=== PATIENT | male | born 2000 | race Caucasian/White ===

== ENCOUNTER 2021-12-06 18:38 | Emergency (ER) | payer OTHER, SELFPAY ==
[2021-12-06 19:04] VITALS: BP 115/71; PULSE 62; RESP 16; O2SAT 99; BMI 25.1
[2021-12-06 19:53] LABS: MANUAL DIFF FLAG NO
[2021-12-06 19:54] LABS: Basophils Percent Auto 0.3 % (0-2); Eosinophils Absolute Auto 0.1 X10*3/uL (0.0-0.4); Eosinophils Percent Auto 0.7 % (0-4); Hematocrit 48.2 % (42.0-52.0); Hemoglobin 15.9 g/dl (14.0-18.0); Imm Gran Abs Auto 0.11 X10*3/uL (0.00-0.03); Imm Gran Pct Auto 0.7 % (0.0-0.4); Lymphocytes Percent Auto 19.7 % (20-40); Mean Corpuscular Hemoglobin 29.3 pg (27.0-33.0); Mean Corpuscular Volume 88.9 fL (80.0-98.0); Monocytes Absolute Auto 1.1 X10*3/uL (0.1-1.2); Monocytes Percent Auto 7.1 % (2-11); Neutrophils Percent Auto 71.5 % (45-73); Platelet Count 309 X10*3/uL (160-400); Red Blood Count 5.42 X10*6/uL (4.60-5.80); Red Cell Distribution Width 12.4 % (11.0-16.0); White Blood Count 15.3 X10*3/uL (4.8-10.8)
[2021-12-06 20:10] LABS: Anion Gap 13 (12-20); Blood Urea Nitrogen 17 mg/dL (9-16); Calcium 10.4 mg/dL (8.4-10.2); Carbon Dioxide 25 mmol/L (22-29); Chloride 106 mmol/L (96-108); Creatinine Clr Calc Pharmacy 147.4; Estimated Glomerular Filt Rate > 60; Glucose Random 102 mg/dL (60-115); Potassium 4.4 mmol/L (3.3-5.1); Sodium 140 mmol/L (135-145)
== END 2021-12-06 21:05 | disposition left against medical advice (07) ==
PROVIDERS: Emergency Provider Emergency Medicine
DX: R51.9 Headache, unspecified (principal); R11.2 Nausea with vomiting, unspecified
CPT/HCPCS: 36415; 80048; 85025; 99282; 99283

== ENCOUNTER 2022-01-02 09:32 | Emergency (ER) | payer OTHER, SELFPAY ==
[2022-01-02 09:37] VITALS: BP 136/74; PULSE 68; RESP 16; TEMP 37.1; O2SAT 99; BMI 22.3
== END 2022-01-02 16:57 | disposition left against medical advice (07) ==
PROVIDERS: Emergency Provider Emergency Medicine
DX: G43.909 Migraine, unspecified, not intractable, without status migrainosus (principal); R11.10 Vomiting, unspecified
CPT/HCPCS: 99281

== ENCOUNTER 2023-12-08 18:58 | Emergency (ER) | payer SELFPAY ==
[2023-12-08 19:38] VITALS: BP 120/55; PULSE 66; RESP 14; TEMP 36.8; O2SAT 96; BMI 30.2
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
[2023-12-08 20:52] VITALS: BP 119/57; PULSE 70; RESP 16; TEMP 36.4; O2SAT 98
== END 2023-12-08 20:55 | disposition home or self-care (01) ==
PROVIDERS: Emergency Provider Internal Medicine
DX: Z04.1 Encounter for examination and observation following transport accident (principal)
CPT/HCPCS: 99283; 99284

== ENCOUNTER 2024-09-15 23:43 | Emergency (ER) | payer OTHER, SELFPAY ==
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
[2024-09-15 23:45] VITALS: BP 135/42; BP 160/108; PULSE 81; PULSE 97; RESP 18; TEMP 36.6; O2SAT 97; O2SAT 98; BMI 27.9
[2024-09-15 23:53] VITALS: BP 135/42; PULSE 81; RESP 18; TEMP 36.6; O2SAT 97
--- NOTE | 2024-09-15 23:56 | MHC.EDTECH ---
patient has small laceration to right pinky finger and palm. no bleeding noted. lacerations cleaned for provider evaluation
[2024-09-16] MEDS: Acetaminophen 325 MG TABLET 975 MG PO
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
[2024-09-16 02:08] VITALS: BP 135/42; PULSE 81; RESP 18; TEMP 36.6; O2SAT 97
== END 2024-09-16 02:09 | disposition home or self-care (01) ==
PROVIDERS: Emergency Provider Emergency Medicine
DX: S80.01XA Contusion of right knee, initial encounter (principal); S60.511A Abrasion of right hand, initial encounter; V43.52XA Car driver injured in collision with other type car in traffic accident, initial encounter; Y93.89 Activity, other specified; Y92.410 Unspecified street and highway as the place of occurrence of the external cause; Y99.9 Unspecified external cause status
CPT/HCPCS: 71045; 73130; 73564; 99283; 99284

== ENCOUNTER 2025-07-01 13:04 | Emergency (ER) | payer OTHER, SELFPAY ==
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
[2025-07-01 13:24] VITALS: BP 146/56; PULSE 73; RESP 16; TEMP 36.6; O2SAT 98; BMI 27.8
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
== END 2025-07-01 14:50 | disposition home or self-care (01) ==
LOC: HO.ED 14:42
PROVIDERS: Emergency Provider Emergency Medicine
DX: S39.012A Strain of muscle, fascia and tendon of lower back, initial encounter (principal); R51.9 Headache, unspecified; V43.52XA Car driver injured in collision with other type car in traffic accident, initial encounter; Y93.9 Activity, unspecified; Y92.410 Unspecified street and highway as the place of occurrence of the external cause; Y99.8 Other external cause status
CPT/HCPCS: 72100; 99281; 99283

== ENCOUNTER → 2025-07-01 13:28 | Outpatient (BNV) | payer OTHER, SELFPAY | PROVIDERS: Visit Provider Radiology Diagnostic Radiology | DX: M54.50 Low back pain, unspecified (principal); V89.2XXA Person injured in unspecified motor-vehicle accident, traffic, initial encounter | CPT/HCPCS: 72100 ==